=== PATIENT | male | born 1990 | race African-American/Black ===

== ENCOUNTER 2017-03-15 14:05 | Emergency (ER) | payer SELFPAY ==
[~2017-03-15] VITALS: Ht 172.7 cm; Wt 82.0 kg
[2017-03-15 14:07] VITALS: BP 120/84; PULSE 83; RESP 16; TEMP 97.8; O2SAT 98
[2017-03-15] MEDS ORDERED: PENI250T PO (14:36)
--- NOTE | 2017-03-15 14:37 | PD ---
HPI Chief Complaint: Oral / Dental Pain or Problem Time Seen by Provider: 14:28 Travel History International Travel<30 days: No Contact w/Intl Traveler<30days: No Traveled to known affect area: No History of Present Illness HPI 26-year-old male presents emergency department for evaluation of right upper dental pain and gum swelling 2 days. Patient reports his history of dental abscesses in the past. He reports the pain is unrelieved by [id number] Tylenol. Pain is throbbing, constant. Denies fever or chills. PFSH Past Medical History Medical History: Denies Significant Hx Tetanus Vaccination: < 5 Years Influenza Vaccination: Yes Social History Alcohol Use: Yes (occ) Tobacco Use: Yes (1/2ppd) Allergies-Medications (Allergen,Severity, Reaction): Coded Allergies: No Known Allergies (Unverified , 03/15/17) Reported Meds & Prescriptions Reported Meds & Active Scripts Active No Active Prescriptions or Reported Medications Review of Systems Except as stated in HPI: all other systems reviewed are Neg General / Constitutional: No: Fever Physical Exam Narrative GENERAL: Well-nourished, well-developed patient. SKIN: Focused skin assessment warm/dry. HEAD: Normocephalic. EYES: No scleral icterus. No injection or drainage. MOUTH: Mucous membranes moist, no lesions, tongue and gums appear normal. Tooth #3 has mild swelling and surrounding gum erythema and tenderness NECK: Supple, trachea midline. No JVD or lymphadenopathy. CARDIOVASCULAR: Regular rate and rhythm without murmurs, gallops, or rubs. RESPIRATORY: Breath sounds equal bilaterally. No accessory muscle use. Data Data Last Documented VS Vital Signs Date Time Temp Pulse Resp B/P (MAP) Pulse Ox O2 Delivery O2 Flow Rate FiO2 03/15/17 14:07 97.8 83 16 120/84 (96) 98 Orders Orders Ketorolac Inj (Toradol Inj) (03/15/17 14:45) MDM Medical Decision Making Medical Screen Exam Complete: Yes Emergency Medical Condition: Yes Differential Diagnosis Dental abscess, dental caries, periodontal disease Narrative Course 26-year-old male with chief complaint of right upper dental pain 2 days. Patient reports gum swelling and erythema. On exam patient has mild swelling, erythema and tenderness around tooth #3. Patient be treated with penicillin. Follow-up with dentist. Diagnosis Primary Impression: Pain, dental Referrals: Dentist Additional Instructions: Take antibiotics as prescribed. Take [id number] Motrin 600 800 mg every 6-8 hours as needed for pain. Follow-up with dentist. Scripts Penicillin V Potassium (Penicillin V Potassium) 250 Mg Tab 250 MG PO Q6H for Infection for 7 Days, #28 TAB 0 Refills Prov: Mee Manriquez 03/15/17 Disposition: 01 DISCHARGE HOME Condition: Stable Mee Manriquez Mar 15, 2017 14:37
[2017-03-15] MEDS ORDERED: KETOROLAC TROMETHAMINE 60 MG/2 ML (IM) VIAL IM ONE (14:45)
== END 2017-03-15 14:45 | disposition home or self-care (01) ==
LOC: PHEFT 14:05
DX: K08.89 Other specified disorders of teeth and supporting structures (principal); F17.200 Nicotine dependence, unspecified, uncomplicated
CPT/HCPCS: 99283